=== PATIENT | female | born 1960 | race African-American/Black ===

== ENCOUNTER 2019-06-28 08:32 | Inpatient (IN) | payer OTHER ==
[2019-06-28 09:46] VITALS: BMI 18.8
--- NOTE | 2019-06-28 10:14 | HP ---
COWS - Scale Resting Pulse: 0= [place] 80 or Below Sweatin= Chills/Flushing Restless Observation: 1= Difficult to Sit Still Pupil Size: 1= Pupils >than Normal Bone or Joint Aches: 2= Severe Diffuse Aches Runny Nose/ Eye Tearin= Runny Nose/Eyes GI Upset > 30mins: 2= Nausea/Diarrhea Tremor Observation: 2= Slight Tremor Visible Yawning Observation: 1= 1-2x During Session Anxiety or Irritability: 2=Irritable/Anxious Goose Flesh Skin: 0=Smooth Skin COWS Score: 14 CIWA Score Nausea/Vomitin Muscle Tremors: 2 Anxiety: 3 Agitation: 3 Paroxysmal Sweats: 1-Minimal Palms Moist Orientation: 0-Oriented Tacttile Disturbances: 1-Very Mild Itch/Numbness Auditory Disturbances: 0-None Visual Disturbances: 0-None Headache: 2-Mild CIWA-Ar Total Score: 14 - Admission Criteria OASAS Guidelines: Admission for Medically Managed Detox: Requires at least one of the followin. CIWA greater than 12 2. Seizures within the past 24 hours 3. Delirium tremens within the past 24 hours 4. Hallucinations within the past 24 hours 5. Acute intervention needed for co occurring medical disorder 6. Acute intervention needed for co occurring psychiatric disorder 7. Severe withdrawal that cannot be handled at a lower level of care (continued vomiting, continued diarrhea, abnormal vital signs) requiring intravenous medication and/or fluids 8. Admission ROS [facility] - [facility] Chief Complaint: i need help to stop using heroin,alcohol,and cocaine Allergies/Adverse Reactions: Allergies Allergy/AdvReac Type Severity Reaction Status Date / Time No Known Allergies Allergy Verified 06/28/19 09:32 History of Present Illness: this 59 years old female with heroin,alcohol,crack dependence,seeking detox, withdrawalsymptom, multiple admissions in detox,last [facility] in 2017 hypertension,hepatitis c treated weight loss hiv since in 1971 no medication for 3 months depression no med did not want to see psychiatrist longest period of sobriety 5 years plan go methadone maintenance after detox nicotine dependence 10 cigarette would like nicotine gum Exam Limitations: No Limitations - Ebola screening Have you traveled outside of the country in the last 21 days: No Have you had contact with anyone from an Ebola affected area: No - Review of Systems Constitutional: Chills, Loss of Appetite, Malaise, Night Sweats, Changes in sleep, Unintentional Wgt. Loss EENT: reports: Tearing, Nose Congestion Respiratory: reports: No Symptoms reported Cardiac: reports: No Symptoms Reported GI: reports: Diarrhea, Nausea, Poor Appetite : reports: No Symptoms Reported Musculoskeletal: reports: Back Pain, Joint Pain, Muscle Pain, Joint Stiffness Integumentary: reports: Dryness Neuro: reports: Headache, Tremors Endocrine: reports: No Symptoms Reported Hematology: reports: Anemia Psychiatric: reports: No Sypmtoms Reported, Judgement Intact, Mood/Affect Appropiate, Orientated x3 Other Systems: Reviewed and Negative Patient History - Patient Medical History Hx Anemia: Yes (no med) Hx Asthma: No Hx Chronic Obstructive Pulmonary Disease (COPD): No Hx Cancer: No Hx Cardiac Disorders: No Hx Congestive Heart Failure: No Hx Hypertension: Yes (no medication) Hx Hypercholesterolemia: No Hx Pacemaker: No HX Cerebrovascular Accident: No Hx Seizures: No Hx Dementia: No Hx Diabetes: No Hx Gastrointestinal Disorders: No Hx Liver Disease: Yes (hepatitis c treated) Hx Genitourinary Disorders: No Hx Sexually Transmitted Disorders: No Hx Renal Disease (ESRD): No Hx Thyroid Disease: No Hx Human Immunodeficiency Virus (HIV): Yes (since 1971,no med for 3 months) Hx Hepatitis C: Yes (treated in 1995) Hx Depression: No Hx Suicide Attempt: No Hx Bipolar Disorder: No Hx Schizophrenia: No Other Medical History: no suicidal,no homicidal - Patient Surgical History Past Surgical History: No - PPD History Previous Implant?: Yes Documented Results: Positive w/o proof Implanted On Prior R Admission?: No PPD to be Administered?: No - Reproductive History Patient is a Female of Child Bearing Age (11 -55 yrs old): No Patient : No - Smoking Cessation Smoking history: Current every day smoker Have you smoked in the past 12 months: Yes Aproximately how many cigarettes per day: 10 Cigars Per Day: 0 Hx Chewing Tobacco Use: No Initiated information on smoking cessation: Yes 'Breaking Loose' booklet given: 06/28/19 - Substance & Tx. History Hx Alcohol Use: Yes Hx Substance Use: Yes Substance Use Type: Alcohol, Cocaine, Heroin Hx Substance Use Treatment: Yes ([facility] in 2018) - Substances abused Heroin Substance route: Inhalation Frequency: Daily Amount used: 4-5 bags Age of first use: 24 Date of last use: 06/27/19 Crack Substance route: Inhalation Frequency: Daily Amount used: 4-5 bags Age of first use: 24 Date of last use: 06/27/19 Alcohol Substance route: Oral Amount used: 16 oz 3-4 beers Age of first use: 24 Date of last use: 06/28/19 Family Disease History - Family Disease History Family History: Denies Admission Physical Exam [facility] - Vital Signs Vital Signs: Vital Signs - 24 hr 06/28/19 09:32 Temperature 98.0 F Pulse Rate 67 Respiratory 16 Rate Blood Pressure 151/95 - Physical General Appearance: Yes: Moderate Distress, Tremorous, Irritable, Sweating, Anxious HEENTM: Yes: Normal ENT Inspection, SILVIO, Pharynx Normal Respiratory: Yes: Lungs Clear, Normal Breath Sounds, No Respiratory Distress Neck: Yes: Within Normal Limits, Supple, Trachea in good position Breast: Yes: Breast Exam Deferred Cardiology: Yes: Within Normal Limits, Regular Rhythm, Regular Rate, S1, S2 Abdominal: Yes: Within Normal Limits, Normal Bowel Sounds, Non Tender, Flat Genitourinary: Yes: Within Normal Limits Back: Yes: Muscle Spasm Musculoskeletal: Yes: Back pain, Joint Stiffness, Muscle Pain Extremities: Yes: Within Normal Limits, Normal Range of Motion, Tremors Neurological: Yes: density control puncher II-XII NML intact, Fully Oriented, Alert, Motor Strength 5/5 Integumentary: Yes: Dry Lymphatic: Yes: Within Normal Limits - Diagnostic (1) Opioid dependence with withdrawal Current Visit: Yes Status: Acute (2) Alcohol dependence with uncomplicated withdrawal Current Visit: Yes Status: Acute (3) Cocaine dependence Current Visit: Yes Status: Acute (4) Weight loss Current Visit: Yes Status: Acute (5) HIV (human immunodeficiency virus infection) Current Visit: Yes Status: Acute (6) Nicotine dependence Current Visit: Yes Status: Acute (7) Hepatitis C Current Visit: Yes Status: Acute Cleared for Admission [facility] - Detox or Rehab [facility] Level of Care: Medically Managed Detox Regimen/Protocol: Methadone (and ativan ) Inpatient Rehab Admission - Rehab Decision to Admit Inpatient rehab admission?: No
[2019-06-28] MEDS ORDERED: hydrOXYzine HCL 25 MG TABLET (FP) PO PRN (10:28)
[2019-06-28] MEDS ORDERED: IBUPROFEN 400 MG TABLET (FP) PO PRN (10:28)
[2019-06-28] MEDS ORDERED: METHOCARBAMOL 500 MG TABLET PO PRN (10:28)
[2019-06-28] MEDS ORDERED: ACETAMINOPHEN 325 MG TABLET (FP) PO PRN ×2 (10:28)
[2019-06-28] MEDS ORDERED: MAGNESIUM HYDROX 2400MG/30ML ORAL SUSPENSION 30 ML CUP PO PRN (10:28)
[2019-06-28] MEDS ORDERED: MENTHOL/PHENOL 1 EACH UD MM PRN (10:28)
[2019-06-28] MEDS ORDERED: MAG HYDROX/AL HYDROX/SIMETH 30 ML UNIT-DOSE CUP PO PRN (10:28)
[2019-06-28] MEDS ORDERED: NICOTINE POLACRILEX 2 MG GUM BUC PRN (10:28)
[2019-06-28] MEDS ORDERED: MAGNESIUM CITRATE 300 ML BOTTLE PO PRN (10:28)
[2019-06-28] MEDS ORDERED: BISMUTH SUBSALICYLATE 262 MG/15 ML BTL PO PRN (10:28)
[2019-06-28] MEDS ORDERED: MELATONIN 5 MG TABLETS PO PRN (10:28)
[2019-06-28] MEDS ORDERED: cloNIDine HCL 0.1 MG TABLET PO PRN (10:28)
[2019-06-28] MEDS ORDERED: LORazepam 1 MG TABLET PO PRN (10:31)
[2019-06-28] MEDS ORDERED: METHADONE HCL 10 MG TABLET (FOR DETOX USE ONLY) PO ONE (10:45)
--- NOTE | 2019-06-28 13:56 | EKG ---
Test Reason : Blood Pressure : / mmHG Vent. Rate : 060 BPM Atrial Rate : 060 BPM P-R Int : 186 ms QRS Dur : 092 ms QT Int : 420 ms P-R-T Axes : 073 072 069 degrees QTc Int : 420 ms SINUS RHYTHM WITH FUSION COMPLEXES POSSIBLE LEFT ATRIAL ENLARGEMENT LEFT VENTRICULAR HYPERTROPHY T WAVE ABNORMALITY, CONSIDER ANTERIOR ISCHEMIA ABNORMAL ECG NO PREVIOUS ECGS AVAILABLE Confirmed by LUIS MIGUEL JOHNSON MD ([id number]) on 06/28/2019 1:56:15 PM Referred By: Confirmed By:LUIS MIGUEL JOHNSON MD
[2019-06-28 14:34] LABS: HEMATOCRIT 28.9 % (32.4-45.2); HEMOGLOBIN 9.8 GM/dL (10.7-15.3); MCH 31.5 pg (25.7-33.7); MCHC 33.8 g/dl (32.0-36.0); MEAN CELL VOLUME 93.4 fl (80-96); MEAN PLT VOLUME 8.4 fl (7.5-11.1); PLATELET COUNT 201 K/MM3 (134-434); RDW 14.7 % (11.6-15.6); WHITE BLOOD COUNT 3.3 K/mm3 (4.0-10.0)
[2019-06-28 14:54] LABS: ALBUMIN 3.2 g/dl (3.4-5.0); BILIRUBIN,TOTAL 0.2 mg/dL (0.2-1); BLOOD UREA NITROGEN 15.7 mg/dL (7-18); CALCIUM 8.2 mg/dL (8.5-10.1); CREATININE 1.1 mg/dL (0.55-1.3); POTASSIUM 4.4 mmol/L (3.5-5.1); TOT PROT 9.6 g/dl (6.4-8.2)
[2019-06-28] MEDS: LORazepam 2 MG TABLET PO SCH ×2 (17:34→21:59)
[2019-06-28] MEDS ORDERED: THIAMINE HCL 100 MG TABLET (FP) PO SCH (22:00)
[2019-06-29] MEDS: LORazepam 2 MG TABLET PO SCH (05:42)
[2019-06-29 09:58] VITALS: BP 171/99; PULSE 73; TEMP 98.4
[2019-06-29] MEDS ORDERED: METHADONE HCL 5 MG TABLET (FOR DETOX USE ONLY) PO ONE (10:00)
[2019-06-29] MEDS ORDERED: PRENATAL VITAMINS W/ FOLIC ACID TABLET (FP) PO SCH (10:00)
--- NOTE | 2019-06-29 15:31 | PN ---
S CIWA - CIWA Score Nausea/Vomitin-No Nausea/No Vomiting Muscle Tremors: 2 Anxiety: 4-Mod. Anxious/Guarded Agitation: 3 Paroxysmal Sweats: 2 Orientation: 2-Disoriented Date<2 days Tacttile Disturbances: 0-None Auditory Disturbances: 0-None Visual Disturbances: 2-Mild Sensitivity Headache: 0-None Present CIWA-Ar Total Score: 15 BHS COWS - Scale Resting Pulse: 0= [place] 80 or Below Sweatin= Chills/Flushing Restless Observation: 1= Difficult to Sit Still Pupil Size: 0= Normal to Room Light Bone or Joint Aches: 2= Severe Diffuse Aches Runny Nose/ Eye Tearin= None GI Upset > 30mins: 0= None Tremor Observation of Outstretched Hands: 2= Slight Tremor Visible Yawning Observation: 1= 1-2x During Session Anxiety or Irritability: 2=Irritable/Anxious Goose Flesh Skin: 0=Smooth Skin COWS Score: 9 BHS Progress Note (SOAP) Subjective: Anxious, Tremors, Body Aches, Sweating. Objective: PATIENT A & O X 2 (UNCERTAIN ABOUT CURRENT DAY / DATE). PATIENT OBSERVED AMBULATING ON UNIT UNASSISTED. IN NO ACUTE DISTRESS. 06/29/19 15:30 Vital Signs Temperature 98.4 F 06/29/19 09:56 Pulse Rate 73 06/29/19 09:56 Respiratory Rate 18 06/29/19 09:56 Blood Pressure 171/99 H 06/29/19 09:56 O2 Sat by Pulse Oximetry (%) Laboratory Tests 06/28/19 06/28/19 06/28/19 10:35 10:35 10:35 WBC 3.3 L RBC 3.10 L Hgb 9.8 L Hct 28.9 L MCV 93.4 MCH 31.5 MCHC 33.8 RDW 14.7 Plt Count 201 MPV 8.4 Sodium 134 L Potassium 4.4 Chloride 100 Carbon Dioxide 28 Anion Gap 6 L BUN 15.7 Creatinine 1.1 Est GFR (CKD-EPI)AfAm 63.20 Est GFR (CKD-EPI)NonAf 54.53 Random Glucose 83 Calcium 8.2 L Total Bilirubin 0.2 AST 14 L ALT 13 Alkaline Phosphatase 122 H Total Protein 9.6 H Albumin 3.2 L RPR Titer Nonreactive LABS NOTED. Assessment: 06/29/19 15:31 WITHDRAWAL SYMPTOMS. HYPERTENSION. ANEMIA. LEUKOPENIA. 06/29/19 15:31 Plan: CONTINUE DETOX. PATIENT REPORTS HISTORY OF ANEMIA IN PAST.
--- NOTE | 2019-06-29 15:39 | DS ---
[facility] Detox Discharge Summary Admission Date: 06/28/19 Discharge Date: 06/29/19 - History Present History: Alcohol Dependence, Cocaine Dependence, Opioid Dependence Additional Comments: DESPITE EFFORTS BY BIRD KEEPER AND BY NURSING STAFF TO ADDRESS PATIENT'S MEDICAL NEEDS / CONCERNS, PATIENT DOES NOT WISH TO REMAIN TO COMPLETE DETOX REGIMEN. RISKS OF LEAVING DETOX UNIT AGAINST MEDICAL ADVICE AND PRIOR TO COMPLETION OF DETOX REGIMEN EXPLAINED TO PATIENT. PATIENT ADVISED TO GO IMMEDIATELY TO NEAREST ER SHOULD ANY INTOLERABLE WITHDRAWAL / DETOX SYMPTOMS DEVELOP AT ANY TIME. PATIENT ALSO ADVISED TO FOLLOW-UP WITH RAIL DOWELING MACHINE OPERATOR SOON POSSIBLE FOR ANEMIA AND FOR LOW WBC COUNT NOTED ON DETOX ADMISSION LABORATORY ASSESSMENT. PATIENT VERBALIZED UNDERSTANDING OF ALL RECOMMENDATIONS PRESENTED TO HER PRIOR TO LEAVING DETOX UNIT. COPIES OF RESULTS OF ALL LABS DRAWN WHILE ADMITTED FOR DETOX GIVEN TO PATIENT AT TIME OF DISCHARGE FROM DETOX UNIT. PATIENT LEFT DETOX UNIT IN STABLE MEDICAL CONDITION. Pertinent Past History: Weight Loss, H.I.V., Nicotine Dependence, Hep C (Treated), HTN, Depression, History Of Anemia. - Physical Exam Results Vital Signs: Vital Signs Temperature 98.4 F 06/29/19 09:56 Pulse Rate 73 06/29/19 09:56 Respiratory Rate 18 06/29/19 09:56 Blood Pressure 171/99 H 06/29/19 09:56 O2 Sat by Pulse Oximetry (%) Pertinent Admission Physical Exam Findings: WITHDRAWAL SYMPTOMS. Laboratory Tests 06/28/19 06/28/19 06/28/19 10:35 10:35 10:35 WBC 3.3 L RBC 3.10 L Hgb 9.8 L Hct 28.9 L MCV 93.4 MCH 31.5 MCHC 33.8 RDW 14.7 Plt Count 201 MPV 8.4 Sodium 134 L Potassium 4.4 Chloride 100 Carbon Dioxide 28 Anion Gap 6 L BUN 15.7 Creatinine 1.1 Est GFR (CKD-EPI)AfAm 63.20 Est GFR (CKD-EPI)NonAf 54.53 Random Glucose 83 Calcium 8.2 L Total Bilirubin 0.2 AST 14 L ALT 13 Alkaline Phosphatase 122 H Total Protein 9.6 H Albumin 3.2 L RPR Titer Nonreactive LABS NOTED. - Diagnosis (1) Leukopenia Status: Acute Qualifiers: Leukopenia type: unspecified Qualified Code(s): D72.819 - Decreased white blood cell count, unspecified (2) Anemia Status: Acute Qualifiers: Anemia type: unspecified type Qualified Code(s): D64.9 - Anemia, unspecified (3) Hypertension Status: Acute Qualifiers: Hypertension type: unspecified Qualified Code(s): I10 - Essential (primary ) hypertension (4) Opioid dependence with withdrawal Status: Acute (5) Alcohol dependence with uncomplicated withdrawal Status: Acute (6) Cocaine dependence Status: Acute Qualifiers: Substance use status: in withdrawal Qualified Code(s): F14.23 - Cocaine dependence with withdrawal (7) Weight loss Status: Acute (8) HIV (human immunodeficiency virus infection) Status: Acute Qualifiers: HIV symptom status: unspecified Qualified Code(s): B20 - Human immunodeficiency virus [HIV] disease (9) Nicotine dependence Status: Acute Qualifiers: Nicotine product type: cigarettes Substance use status: uncomplicated Qualified Code(s): F17.210 - Nicotine dependence, cigarettes, uncomplicated (10) Hepatitis C Status: Acute Qualifiers: Viral hepatitis chronicity: unspecified Hepatic coma status: without hepatic coma Qualified Code(s): B19.20 - Unspecified viral hepatitis C without hepatic coma - AMA Did Patient Leave Against Medical Advice: Yes (PATIENT DID NOT WISH TO REMAIN TO COMPLETE DETOX REGIMEN.)
[2019-06-30] MEDS ORDERED: LORazepam 1 MG TABLET PO SCH (05:00)
[2019-06-30] MEDS ORDERED: METHADONE HCL 10 MG TABLET (FOR DETOX USE ONLY) PO ONE (10:00)
[2019-07-01] MEDS ORDERED: LORazepam 0.5 MG TABLET PO PRN
[2019-07-01] MEDS ORDERED: LORazepam 0.5 MG TABLET PO SCH (05:00)
[2019-07-01] MEDS ORDERED: METHADONE HCL 5 MG TABLET (FOR DETOX USE ONLY) PO ONE (06:00)
[2019-07-02] MEDS ORDERED: LORazepam 0.5 MG TABLET PO ONE (05:00)
== END 2019-06-29 09:37 | disposition left against medical advice (07) | DRG 770 ==
LOC: YASAS 08:32 → Y3N 10:29
PROVIDERS: ADMIT Surgery; ATTEND Surgery
PROC: HZ2ZZZZ Detoxification Services for Substance Abuse Treatment (ICD-10-PCS; principal; 2019-06-28)
DX: F11.23 Opioid dependence with withdrawal (principal); F10.230 Alcohol dependence with withdrawal, uncomplicated; F14.20 Cocaine dependence, uncomplicated; F17.210 Nicotine dependence, cigarettes, uncomplicated; D72.819 Decreased white blood cell count, unspecified; D64.9 Anemia, unspecified; I10 Essential (primary) hypertension; R63.4 Abnormal weight loss; B19.20 Unspecified viral hepatitis C without hepatic coma; Z21 Asymptomatic human immunodeficiency virus [HIV] infection status
CPT/HCPCS: 36415; 71045-TC-FY; 80053; 81025; 85027; 86593; 93005; 93010

== ENCOUNTER 2019-08-10 08:46 | Inpatient (IN) | payer OTHER | END 2019-08-12 11:24 | disposition left against medical advice (07) | LOC: YASAS 08:46 → Y6N 10:50 ==

== ENCOUNTER 2019-10-12 11:58 | Inpatient (IN) | payer OTHER ==
[2019-10-12 12:40] VITALS: BMI 18.6
--- NOTE | 2019-10-12 13:18 | HP ---
COWS - Scale Resting Pulse: 0= [place] 80 or Below Sweatin=Flushed/Facial Moisture Restless Observation: 1= Difficult to Sit Still Pupil Size: 1= Pupils >than Normal Bone or Joint Aches: 1= Mild Discomfort Runny Nose/ Eye Tearin= Nasal Congestion GI Upset > 30mins: 2= Nausea/Diarrhea Tremor Observation: 2= Slight Tremor Visible Yawning Observation: 1= 1-2x During Session Anxiety or Irritability: 1=Feels Anxious/Irritable Goose Flesh Skin: 3=Piloerection COWS Score: 15 CIWA Score Nausea/Vomitin Muscle Tremors: 2 Anxiety: 2 Agitation: 2 Paroxysmal Sweats: 2 Orientation: 0-Oriented Tacttile Disturbances: 1-Very Mild Itch/Numbness Auditory Disturbances: 1-Very Mild Visual Disturbances: 1-Very Mild Sensitivity Headache: 2-Mild CIWA-Ar Total Score: 15 - Admission Criteria OASAS Guidelines: Admission for Medically Managed Detox: Requires at least one of the followin. CIWA greater than 12 2. Seizures within the past 24 hours 3. Delirium tremens within the past 24 hours 4. Hallucinations within the past 24 hours 5. Acute intervention needed for co occurring medical disorder 6. Acute intervention needed for co occurring psychiatric disorder 7. Severe withdrawal that cannot be handled at a lower level of care (continued vomiting, continued diarrhea, abnormal vital signs) requiring intravenous medication and/or fluids 8. Patient presents the following: CIWA greater than 12 Admission Criteria Met: Admission criteria met Admitting History and Physical - Smoking History Smoking history: Current every day smoker Have you smoked in the past 12 months: Yes Aproximately how many cigarettes per day: 10 - Alcohol/Substance Use Hx Alcohol Use: Yes Admission ROS [facility] Chief Complaint: I am here to get detox Allergies/Adverse Reactions: Allergies Allergy/AdvReac Type Severity Reaction Status Date / Time No Known Allergies Allergy Verified 08/10/19 09:05 History of Present Illness: 59 year old woman with alcohol and opiate use presents for detox, her last treatment was 08/10/19. She denies blackouts or seizures related to drug/alcohol use. Patient was on oxycodone but at this visit, she reports not using as much as before. Exam Limitations: No Limitations - Ebola screening Have you traveled outside of the country in the last 21 days: No (N) Have you had contact with anyone from an Ebola affected area: No Have you been sick,other than usual withdrawal symptoms: No Do you have a fever: No - Review of Systems Constitutional: Chills, Loss of Appetite, Changes in sleep EENT: reports: Nose Congestion Respiratory: reports: Cough Cardiac: reports: No Symptoms Reported GI: reports: Nausea, Poor Appetite, Poor Fluid Intake, Abdominal cramping : reports: No Symptoms Reported Musculoskeletal: reports: Back Pain, Muscle Pain, Muscle Weakness Integumentary: reports: Dryness Neuro: reports: Headache, Numbness Endocrine: reports: No Symptoms Reported Hematology: reports: Anemia Psychiatric: reports: Anxious, Depressed Other Systems: Reviewed and Negative Patient History - Patient Medical History Hx Anemia: Yes (no med) Hx Asthma: No Hx Chronic Obstructive Pulmonary Disease (COPD): No Hx Cancer: No Hx Cardiac Disorders: No Hx Congestive Heart Failure: No Hx Hypertension: Yes (no medication) Hx Hypercholesterolemia: No Hx Pacemaker: No HX Cerebrovascular Accident: No Hx Seizures: No Hx Dementia: No Hx Diabetes: No Hx Gastrointestinal Disorders: No Hx Liver Disease: Yes (hepatitis c treated) Hx Genitourinary Disorders: No Hx Sexually Transmitted Disorders: No Hx Renal Disease (ESRD): No Hx Thyroid Disease: No Hx Human Immunodeficiency Virus (HIV): Yes (since 1971,no med for 3 months) Hx Hepatitis C: Yes (treated in 1995) Hx Depression: Yes (with anxiety - no meds now) Hx Suicide Attempt: No Hx Bipolar Disorder: No Hx Schizophrenia: No - Patient Surgical History Past Surgical History: Yes Hx Neurologic Surgery: No Hx Cataract Extraction: No Hx Cardiac Surgery: No Hx Lung Surgery: No Hx Breast Surgery: No Hx Breast Biopsy: No Hx Abdominal Surgery: No Hx Appendectomy: No Hx Cholecystectomy: No Hx Genitourinary Surgery: Yes (ectopic years ago) Hx Section: No Hx Orthopedic Surgery: No Anesthesia Reaction: No - PPD History Previous Implant?: No Documented Results: Positive w/o proof Date: 06/28/19 PPD to be Administered?: No - Smoking Cessation Smoking history: Current every day smoker Have you smoked in the past 12 months: Yes Aproximately how many cigarettes per day: 10 Cigars Per Day: 0 Hx Chewing Tobacco Use: No Initiated information on smoking cessation: Yes 'Breaking Loose' booklet given: 10/12/19 - Substances abused Heroin Substance route: Inhalation Frequency: Daily Amount used: 7 bags Age of first use: 24 Date of last use: 10/12/19 Crack Substance route: Smoking Frequency: Daily Amount used: 6 bags Age of first use: 24 Date of last use: 10/12/19 Alcohol Substance route: Oral Amount used: 16 oz 6 beers Age of first use: 24 Date of last use: 10/12/19 Oxycontin Other (specify): oxycodone Substance route: Oral Frequency: Daily Amount used: 30mg Marijuana/Hashish Substance route: Smoking Frequency: 1-3 times last 30 days Amount used: 1 joint Age of first use: 8 Date of last use: 08/07/19 Admission Physical Exam [facility] - Vital Signs Vital Signs: Vital Signs - 24 hr 10/12/19 12:31 Temperature 97.1 F L Pulse Rate 73 Respiratory 18 Rate Blood Pressure 157/94 - Physical General Appearance: Yes: No Apparent Distress HEENTM: Yes: EOMI, Hearing grossly Normal, Normocephalic, Normal Voice, SILVIO Respiratory: Yes: Chest Non-Tender, Lungs Clear, No Respiratory Distress, No Accessory Muscle Use Neck: Yes: No masses,lesions,Nodules, Supple Breast: Yes: Breast Exam Deferred Cardiology: Yes: Regular Rhythm, Regular Rate, S1, S2 Abdominal: Yes: Normal Bowel Sounds, Soft Genitourinary: Yes: Within Normal Limits Back: Yes: Normal Inspection Musculoskeletal: Yes: full range of Motion, Gait Steady, Pelvis Stable Extremities: Yes: Tremors Neurological: Yes: sheet metal foreman II-XII NML intact, Fully Oriented, Alert, Normal Mood/ Affect, Normal Response Integumentary: Yes: Dry Lymphatic: Yes: Within Normal Limits - Diagnostic (1) Alcohol dependence with uncomplicated withdrawal Current Visit: Yes Status: Acute (2) Cocaine dependence Current Visit: Yes Status: Acute Qualifiers: Substance use status: uncomplicated Qualified Code(s): F14.20 - Cocaine dependence, uncomplicated (3) HIV (human immunodeficiency virus infection) Current Visit: Yes Status: Chronic Qualifiers: HIV symptom status: unspecified Qualified Code(s): B20 - Human immunodeficiency virus [HIV] disease (4) Hepatitis C virus infection cured after antiviral drug therapy Current Visit: Yes Status: Chronic (5) Hypertension Current Visit: Yes Status: Chronic Qualifiers: Hypertension type: essential hypertension Qualified Code(s): I10 - Essential (primary) hypertension (6) Nicotine dependence Current Visit: Yes Status: Acute Qualifiers: Nicotine product type: cigarettes Substance use status: uncomplicated Qualified Code(s): F17.210 - Nicotine dependence, cigarettes, uncomplicated (7) Opioid dependence with withdrawal Current Visit: Yes Status: Acute Cleared for Admission S - Detox or Rehab [facility] Level of Care: Medically Managed Detox Regimen/Protocol: Methadone/Librium Claeared for Rehab Admission: No Breathalyzer - Breathalyzer Breathalyzer: 0.008 Urine Drug Screen - Test Device Lot number: [id number] Expiration date: 06/26/21 - Control Is test valid?: Yes - Results Drug screen NEGATIVE: No Urine drug screen results: DUANE-Cocaine, MOP-Opiates Inpatient Rehab Admission - Rehab Decision to Admit Inpatient rehab admission?: No
[2019-10-12] MEDS ORDERED: chlordiazePOXIDE HCL 10 MG CAPSULE PO PRN (13:49)
[2019-10-12] MEDS ORDERED: cloNIDine HCL 0.1 MG TABLET PO PRN (13:49)
[2019-10-12] MEDS ORDERED: ACETAMINOPHEN 325 MG TABLET (FP) PO PRN ×2 (13:49)
[2019-10-12] MEDS ORDERED: NALOXONE HCL 0.4 MG/ML VIAL IM PRN (13:49)
[2019-10-12] MEDS ORDERED: MAGNESIUM CITRATE 300 ML BOTTLE PO PRN (13:49)
[2019-10-12] MEDS ORDERED: NICOTINE POLACRILEX 2 MG GUM BUC PRN (13:49)
[2019-10-12] MEDS ORDERED: MELATONIN 5 MG TABLETS PO PRN (13:49)
[2019-10-12] MEDS ORDERED: chlordiazePOXIDE HCL 25 MG CAPSULE PO ONE (13:49)
[2019-10-12] MEDS ORDERED: BISMUTH SUBSALICYLATE 524 MG/30 ML UD PO PRN (13:49)
[2019-10-12] MEDS ORDERED: METHOCARBAMOL 500 MG TABLET PO PRN (13:49)
[2019-10-12] MEDS ORDERED: IBUPROFEN 400 MG TABLET (FP) PO PRN (13:49)
[2019-10-12] MEDS ORDERED: MENTHOL/PHENOL 1 EACH UD MM PRN (13:49)
[2019-10-12] MEDS ORDERED: MAG HYDROX/AL HYDROX/SIMETH 30 ML UNIT-DOSE CUP PO PRN (13:49)
[2019-10-12] MEDS ORDERED: METHADONE HCL 10 MG TABLET (FOR DETOX USE ONLY) PO ONE (13:49)
[2019-10-12] MEDS ORDERED: MAGNESIUM HYDROX 2400MG/30ML ORAL SUSPENSION 30 ML CUP PO PRN (13:49)
[2019-10-12] MEDS ORDERED: THIAMINE HCL 100 MG TABLET (FP) PO SCH (22:00)
[2019-10-12] MEDS: chlordiazePOXIDE HCL 25 MG CAPSULE PO SCH (22:37)
[2019-10-13] MEDS: chlordiazePOXIDE HCL 25 MG CAPSULE PO SCH ×2 (05:31→12:45)
[2019-10-13 06:54] VITALS: BP 150/86
--- NOTE | 2019-10-13 09:20 | PN ---
[facility] CIWA - CIWA Score Nausea/Vomitin-Mild Nausea/No Vomiting Muscle Tremors: 3 Anxiety: 3 Agitation: 1-Slight > Activity Paroxysmal Sweats: 2 Orientation: 1-Uncertain about Date (date of week) Tacttile Disturbances: 1-Very Mild Itch/Numbness Auditory Disturbances: 0-None Visual Disturbances: 0-None Headache: 2-Mild CIWA-Ar Total Score: 14 BHS COWS - Scale Resting Pulse: 0= [place] 80 or Below Sweatin= Chills/Flushing Restless Observation: 0= Sits Still Pupil Size: 1= Pupils >than Normal Bone or Joint Aches: 2= Severe Diffuse Aches Runny Nose/ Eye Tearin= None GI Upset > 30mins: 2= Nausea/Diarrhea (no diarrhea) Tremor Observation of Outstretched Hands: 2= Slight Tremor Visible Yawning Observation: 1= 1-2x During Session Anxiety or Irritability: 2=Irritable/Anxious Goose Flesh Skin: 3=Piloerection COWS Score: 14 S Progress Note (SOAP) Subjective: 59 years old female admitted on 10/12/19 for alcohol and opiate withdrawal sx management treated with librium and methadone detox regimen patient tolerated well ate breakfast resting on bed headaches body aches prefers to stay in bed today Objective: 10/13/19 09:21 Vital Signs Temperature 99.1 F 10/13/19 06:53 Pulse Rate 60 10/13/19 06:53 Respiratory Rate 16 10/13/19 06:53 Blood Pressure 150/86 10/13/19 06:53 O2 Sat by Pulse Oximetry (%) 10/13/19 09:23 lab pending 10/13/19 09:24 bp elevation Assessment: 10/13/19 09:23 alcohol and opiate withdrawal sx 10/13/19 09:23 hypertension Plan: continue librium and methadone detox regimen begin amlodipine 5 mg po daily
[2019-10-13 09:40] VITALS: PULSE 74; TEMP 98.8
[2019-10-13] MEDS ORDERED: METHADONE HCL 5 MG TABLET (FOR DETOX USE ONLY) PO ONE (10:00)
[2019-10-13] MEDS ORDERED: amLODIPine BESYLATE 5 MG TABLET (FP) PO SCH (10:00)
[2019-10-13] MEDS ORDERED: PRENATAL VITAMINS W/ FOLIC ACID TABLET (FP) PO SCH (10:00)
[2019-10-13 11:06] LABS: HEMOGLOBIN 10.5 GM/dL (10.7-15.3); MCH 30.9 pg (25.7-33.7); MCHC 33.8 g/dl (32.0-36.0); MEAN CELL VOLUME 91.3 fl (80-96); MEAN PLT VOLUME 8.5 fl (7.5-11.1); PLATELET COUNT 180 K/MM3 (134-434); RBC 3.39 M/mm3 (3.60-5.2); RDW 13.6 % (11.6-15.6)
[2019-10-13 11:12] LABS: ALBUMIN 2.7 g/dl (3.4-5.0); BILIRUBIN,TOTAL 0.2 mg/dL (0.2-1); BLOOD UREA NITROGEN 18.2 mg/dL (7-18); CALCIUM 8.2 mg/dL (8.5-10.1); POTASSIUM 3.8 mmol/L (3.5-5.1); TOT PROT 8.8 g/dl (6.4-8.2)
--- NOTE | 2019-10-13 14:02 | DS ---
[facility] Detox Discharge Summary Admission Date: 10/12/19 Discharge Date: 10/13/19 - History Present History: Alcohol Dependence, Opioid Dependence Additional Comments: 59 years old female insists to leave the detox unit without apparent reason refuses ciwa refuse cows refuses discharge exist physical examination patient is alert oriented x 3 speech clearly coherently denies suicidal ideation steady gait Pertinent Past History: case discussed with the nurse and counselor that against medical advice is suitable for current discharge circumstances - Physical Exam Results Vital Signs: Vital Signs Temperature 98.8 F 10/13/19 09:38 Pulse Rate 74 10/13/19 09:38 Respiratory Rate 18 10/13/19 09:38 Blood Pressure 150/86 10/13/19 06:53 O2 Sat by Pulse Oximetry (%) Pertinent Admission Physical Exam Findings: alcohol and opiate withdrawal sx Laboratory Last Values WBC 3.0 K/mm3 (4.0-10.0) L 10/13/19 07:40 RBC 3.39 M/mm3 (3.60-5.2) L 10/13/19 07:40 Hgb 10.5 GM/dL (10.7-15.3) L 10/13/19 07:40 Hct 31.0 % (32.4-45.2) L 10/13/19 07:40 MCV 91.3 fl (80-96) 10/13/19 07:40 MCH 30.9 pg (25.7-33.7) 10/13/19 07:40 MCHC 33.8 g/dl (32.0-36.0) 10/13/19 07:40 RDW 13.6 % (11.6-15.6) 10/13/19 07:40 Plt Count 180 K/MM3 (134-434) 10/13/19 07:40 MPV 8.5 fl (7.5-11.1) 10/13/19 07:40 Sodium 138 mmol/L (136-145) 10/13/19 07:40 Potassium 3.8 mmol/L (3.5-5.1) 10/13/19 07:40 Chloride 104 mmol/L (98-107) 10/13/19 07:40 Carbon Dioxide 31 mmol/L (21-32) 10/13/19 07:40 Anion Gap 3 MMOL/L (8-16) L 10/13/19 07:40 BUN 18.2 mg/dL (7-18) H 10/13/19 07:40 Creatinine 1.0 mg/dL (0.55-1.3) 10/13/19 07:40 Est GFR (CKD-EPI)AfAm 70.91 10/13/19 07:40 Est GFR (CKD-EPI)NonAf 61.19 10/13/19 07:40 Random Glucose 87 mg/dL (74-106) 10/13/19 07:40 Calcium 8.2 mg/dL (8.5-10.1) L 10/13/19 07:40 Total Bilirubin 0.2 mg/dL (0.2-1) 10/13/19 07:40 AST 17 U/L (15-37) 10/13/19 07:40 ALT 14 U/L (13-61) 10/13/19 07:40 Alkaline Phosphatase 100 U/L (45-117) 10/13/19 07:40 Total Protein 8.8 g/dl (6.4-8.2) H 10/13/19 07:40 Albumin 2.7 g/dl (3.4-5.0) L 10/13/19 07:40 RPR Titer Nonreactive (NONREACTIVE) 10/13/19 07:40 lab noted - Treatment Hospital Course: Detox Protocol Followed, Responded well Patient has Accepted a Rehab Referral to: [facility] - Medication Discharge Medications: Ambulatory Orders Naloxone HCl [Narcan] 4 mg NS ASDIR PRN #1 spray 10/13/19 - Diagnosis (1) Alcohol dependence with uncomplicated withdrawal Status: Acute (2) COPD (chronic obstructive pulmonary disease) Status: Chronic Qualifiers: COPD type: emphysema Emphysema type: unspecified Qualified Code(s): J43.9 - Emphysema, unspecified (3) Nicotine dependence Status: Acute Qualifiers: Nicotine product type: cigarettes Substance use status: in withdrawal Qualified Code(s): F17.213 - Nicotine dependence, cigarettes, with withdrawal (4) PPD positive, treated Status: Resolved (5) Substance induced mood disorder Status: Suspected (6) HIV (human immunodeficiency virus infection) Status: Chronic Qualifiers: HIV symptom status: unspecified Qualified Code(s): B20 - Human immunodeficiency virus [HIV] disease (7) Hypertension Status: Chronic Qualifiers: Hypertension type: essential hypertension Qualified Code(s): I10 - Essential (primary) hypertension (8) Weight loss Status: Acute - AMA Did Patient Leave Against Medical Advice: Yes
--- NOTE | 2019-10-13 16:48 | EKG ---
Test Reason : Blood Pressure : / mmHG Vent. Rate : 066 BPM Atrial Rate : 066 BPM P-R Int : 192 ms QRS Dur : 094 ms QT Int : 414 ms P-R-T Axes : 082 068 064 degrees QTc Int : 434 ms NORMAL SINUS RHYTHM POSSIBLE LEFT ATRIAL ENLARGEMENT LEFT VENTRICULAR HYPERTROPHY ABNORMAL ECG WHEN COMPARED WITH ECG OF 28-JUN-2019 10:39, FUSION COMPLEXES ARE NO LONGER PRESENT Confirmed by ALEX REGALADO, LUIS MIGUEL ([id number]) on 10/13/2019 4:47:39 PM Referred By: Confirmed By:LUIS MIGUEL JOHNSON MD
[2019-10-14] MEDS ORDERED: chlordiazePOXIDE 5 MG CAPSULE PO SCH (05:00)
[2019-10-14] MEDS ORDERED: METHADONE HCL 10 MG TABLET (FOR DETOX USE ONLY) PO ONE (10:00)
[2019-10-15] MEDS ORDERED: chlordiazePOXIDE HCL 10 MG CAPSULE PO PRN
[2019-10-15] MEDS ORDERED: chlordiazePOXIDE HCL 10 MG CAPSULE PO SCH (05:00)
[2019-10-15] MEDS ORDERED: METHADONE HCL 5 MG TABLET (FOR DETOX USE ONLY) PO ONE (06:00)
[2019-10-16] MEDS ORDERED: chlordiazePOXIDE HCL 10 MG CAPSULE PO ONE (05:00)
== END 2019-10-13 13:50 | disposition left against medical advice (07) | DRG 770 ==
LOC: YASAS 11:58 → Y3N 14:07
PROVIDERS: ADMIT Allergy & Immunology; ATTEND Allergy & Immunology
PROC: HZ2ZZZZ Detoxification Services for Substance Abuse Treatment (ICD-10-PCS; principal; 2019-10-12)
DX: F11.23 Opioid dependence with withdrawal (principal); F10.230 Alcohol dependence with withdrawal, uncomplicated; F14.20 Cocaine dependence, uncomplicated; F17.213 Nicotine dependence, cigarettes, with withdrawal; I10 Essential (primary) hypertension; Z21 Asymptomatic human immunodeficiency virus [HIV] infection status; J43.9 Emphysema, unspecified; R63.4 Abnormal weight loss; D64.9 Anemia, unspecified
CPT/HCPCS: 36415; 80053; 85027; 86593; 93005; 93010; J0735

== ENCOUNTER 2019-10-26 11:18 | Inpatient (IN) | payer OTHER ==
[2019-10-26 12:10] VITALS: BMI 18.4
--- NOTE | 2019-10-26 13:06 | HP ---
COWS - Scale Resting Pulse: 1= [place] 81-100 Sweatin= Chills/Flushing Restless Observation: 1= Difficult to Sit Still Pupil Size: 1= Pupils >than Normal Bone or Joint Aches: 1= Mild Discomfort Runny Nose/ Eye Tearin= Runny Nose/Eyes GI Upset > 30mins: 2= Nausea/Diarrhea Tremor Observation: 2= Slight Tremor Visible Yawning Observation: 1= 1-2x During Session Anxiety or Irritability: 2=Irritable/Anxious Goose Flesh Skin: 3=Piloerection COWS Score: 17 CIWA Score Nausea/Vomitin Muscle Tremors: 2 Anxiety: 2 Agitation: 2 Paroxysmal Sweats: 2 Orientation: 0-Oriented Tacttile Disturbances: 1-Very Mild Itch/Numbness Auditory Disturbances: 1-Very Mild Visual Disturbances: 1-Very Mild Sensitivity Headache: 2-Mild CIWA-Ar Total Score: 15 - Admission Criteria OASAS Guidelines: Admission for Medically Managed Detox: Requires at least one of the followin. CIWA greater than 12 2. Seizures within the past 24 hours 3. Delirium tremens within the past 24 hours 4. Hallucinations within the past 24 hours 5. Acute intervention needed for co occurring medical disorder 6. Acute intervention needed for co occurring psychiatric disorder 7. Severe withdrawal that cannot be handled at a lower level of care (continued vomiting, continued diarrhea, abnormal vital signs) requiring intravenous medication and/or fluids 8. Patient presents the following: CIWA greater than 12 Admission Criteria Met: Admission criteria met Admitting History and Physical - Smoking History Smoking history: Current every day smoker Have you smoked in the past 12 months: Yes Aproximately how many cigarettes per day: 10 - Alcohol/Substance Use Hx Alcohol Use: Yes Admission ROS S - HPI Chief Complaint: " I'm here to get my life together, I need to go to a 21 day program but I have to do detox first". Allergies/Adverse Reactions: Allergies Allergy/AdvReac Type Severity Reaction Status Date / Time pork derived (porcine) Allergy Mild Hives Verified 10/26/19 12:02 History of Present Illness: 59 year old woman with alcohol and opiate use presents for detox, her last treatment was 08/10/19, she signed out AMA. She denies blackouts or seizures related to drug/alcohol use. Patient was on oxycodone but at this visit, she reports not using as much as before. 10/12-10/13 Exam Limitations: No Limitations - Ebola screening Have you traveled outside of the country in the last 21 days: No Have you had contact with anyone from an Ebola affected area: No Have you been sick,other than usual withdrawal symptoms: No Do you have a fever: No - Review of Systems Constitutional: Chills, Changes in sleep, Unexplained wgt Loss EENT: reports: Nose Congestion Respiratory: reports: Cough Cardiac: reports: Lightheadedness GI: reports: Nausea, Poor Appetite, Poor Fluid Intake : reports: No Symptoms Reported Musculoskeletal: reports: Back Pain, Muscle Pain, Muscle Weakness Integumentary: reports: Sweating Neuro: reports: Headache, Numbness, Tremors Endocrine: reports: No Symptoms Reported Hematology: reports: Anemia Psychiatric: reports: Anxious, Depressed Other Systems: Reviewed and Negative Patient History - Patient Medical History Hx Anemia: Yes (no med) Hx Asthma: No Hx Chronic Obstructive Pulmonary Disease (COPD): No Hx Cancer: No Hx Cardiac Disorders: No Hx Congestive Heart Failure: No Hx Hypertension: No Hx Hypercholesterolemia: No Hx Pacemaker: No HX Cerebrovascular Accident: No Hx Seizures: No Hx Dementia: No Hx Diabetes: No Hx Gastrointestinal Disorders: No Hx Liver Disease: Yes (hepatitis c treated) Hx Genitourinary Disorders: No Hx Sexually Transmitted Disorders: No Hx Renal Disease (ESRD): No Hx Thyroid Disease: No Hx Human Immunodeficiency Virus (HIV): Yes (since 1971,no med for 3 months) Hx Hepatitis C: Yes (treated in 1995) Hx Depression: Yes Hx Suicide Attempt: No Hx Bipolar Disorder: No Hx Schizophrenia: No - Patient Surgical History Past Surgical History: Yes Hx Neurologic Surgery: No Hx Cataract Extraction: No Hx Cardiac Surgery: No Hx Lung Surgery: No Hx Breast Surgery: No Hx Breast Biopsy: No Hx Abdominal Surgery: No Hx Appendectomy: No Hx Cholecystectomy: No Hx Genitourinary Surgery: Yes (ectopic years ago) Hx Section: No Hx Orthopedic Surgery: No Anesthesia Reaction: No - PPD History Previous Implant?: No Documented Results: Positive w/o proof Implanted On Prior [facility] Admission?: No Date: 06/28/19 (CXR on 06/28 with chronic lung changes, CT scan recommended) PPD to be Administered?: No - Smoking Cessation Smoking history: Current every day smoker Have you smoked in the past 12 months: Yes Aproximately how many cigarettes per day: 20 Cigars Per Day: 0 Hx Chewing Tobacco Use: No Initiated information on smoking cessation: Yes 'Breaking Loose' booklet given: 10/26/19 - Substances abused Heroin Substance route: Inhalation Frequency: Daily Amount used: 6 bags Age of first use: 24 Date of last use: 10/26/19 Crack Substance route: Smoking Frequency: Daily Amount used: $70 Age of first use: 24 Date of last use: 10/26/19 Alcohol Substance route: Oral Amount used: 16 oz 6 beers Age of first use: 24 Date of last use: 10/26/19 Oxycontin Other (specify): oxycodone Substance route: Oral Frequency: Daily Amount used: 30mg Marijuana/Hashish Substance route: Smoking Frequency: 1-3 times last 30 days Amount used: 1 joint Age of first use: 8 Date of last use: 09/20/19 Admission Physical Exam S - Vital Signs Vital Signs: Vital Signs - 24 hr 10/26/19 12:05 Temperature 97.0 F L Pulse Rate 95 H Respiratory 16 Rate Blood Pressure 133/86 - Physical General Appearance: Yes: Cachetic HEENTM: Yes: Hearing grossly Normal, Normal ENT Inspection, Normal Voice, Nasal Congestion, Other (full set of upper dentures, missing lower set) Respiratory: Yes: Chest Non-Tender, Decreased Breath Sounds, No Respiratory Distress, No Accessory Muscle Use Breast: Yes: Breast Exam Deferred Cardiology: Yes: Regular Rhythm, Regular Rate, S1, S2 Abdominal: Yes: Normal Bowel Sounds, Non Tender, Flat, Soft Genitourinary: Yes: Within Normal Limits Back: Yes: Normal Inspection Musculoskeletal: Yes: Gait Steady, Back pain, Muscle Pain, Muscle weakness Extremities: Yes: Tremors Neurological: Yes: Fully Oriented, Alert, Normal Mood/Affect, Normal Response Integumentary: Yes: Clammy Lymphatic: Yes: Within Normal Limits - Diagnostic (1) Alcohol dependence with uncomplicated withdrawal Current Visit: Yes Status: Acute (2) Chronic back pain Current Visit: Yes Status: Chronic Qualifiers: Back pain location: low back pain Back pain laterality: bilateral Sciatica presence: without sciatica Qualified Code(s): M54.5 - Low back pain; G89.29 - Other chronic pain Comment: need to contact pain management to coordinate care (3) Cocaine dependence Current Visit: Yes Status: Acute Qualifiers: Substance use status: uncomplicated Qualified Code(s): F14.20 - Cocaine dependence, uncomplicated (4) Nicotine dependence Current Visit: Yes Status: Acute Qualifiers: Nicotine product type: cigarettes Substance use status: uncomplicated Qualified Code(s): F17.210 - Nicotine dependence, cigarettes, uncomplicated (5) Opioid dependence with withdrawal Current Visit: Yes Status: Acute (6) HIV (human immunodeficiency virus infection) Current Visit: No Status: Chronic Qualifiers: HIV symptom status: unspecified Qualified Code(s): B20 - Human immunodeficiency virus [HIV] disease (7) Hepatitis C virus infection cured after antiviral drug therapy Current Visit: No Status: Chronic (8) PPD positive, treated Current Visit: No Status: Chronic Comment: 06/28/19 cxr done Cleared for Admission S - Detox or Rehab [facility] Level of Care: Medically Managed Detox Regimen/Protocol: Methadone/Valium Claeared for Rehab Admission: No Breathalyzer - Breathalyzer Breathalyzer: 0.017 Urine Drug Screen - Test Device Lot number: [id number] Expiration date: 06/26/21 - Control Is test valid?: Yes - Results Drug screen NEGATIVE: No Urine drug screen results: UDANE-Cocaine, FEN-Fentanyl, MOP-Opiates, MTD-Methadone , BZO-Benzodiazepines Inpatient Rehab Admission - Rehab Decision to Admit Inpatient rehab admission?: No
[2019-10-26] MEDS ORDERED: P-EPHED 60MG/TRIPROLIDI 2.5MG TABLET PO PRN (13:13)
[2019-10-26] MEDS ORDERED: NICOTINE POLACRILEX 2 MG GUM BUC PRN (13:13)
[2019-10-26] MEDS ORDERED: BISMUTH SUBSALICYLATE 524 MG/30 ML UD PO PRN (13:13)
[2019-10-26] MEDS ORDERED: cloNIDine HCL 0.1 MG TABLET PO PRN (13:13)
[2019-10-26] MEDS ORDERED: NALOXONE HCL 0.4 MG/ML VIAL IM PRN (13:13)
[2019-10-26] MEDS ORDERED: IBUPROFEN 400 MG TABLET (FP) PO PRN (13:13)
[2019-10-26] MEDS ORDERED: diazePAM 5 MG TABLET PO PRN (13:13)
[2019-10-26] MEDS ORDERED: MAGNESIUM CITRATE 300 ML BOTTLE PO PRN (13:13)
[2019-10-26] MEDS ORDERED: MAGNESIUM HYDROX 2400MG/30ML ORAL SUSPENSION 30 ML CUP PO PRN (13:13)
[2019-10-26] MEDS ORDERED: MAG HYDROX/AL HYDROX/SIMETH 30 ML UNIT-DOSE CUP PO PRN (13:13)
[2019-10-26] MEDS ORDERED: METHADONE HCL 10 MG TABLET (FOR DETOX USE ONLY) PO ONE (13:13)
[2019-10-26] MEDS ORDERED: MENTHOL/PHENOL 1 EACH UD MM PRN (13:13)
[2019-10-26] MEDS ORDERED: METHOCARBAMOL 500 MG TABLET PO PRN (13:13)
[2019-10-26] MEDS ORDERED: ACETAMINOPHEN 325 MG TABLET (FP) PO PRN ×2 (13:13)
[2019-10-26] MEDS ORDERED: MELATONIN 5 MG TABLETS PO PRN (13:13)
[2019-10-26] MEDS: NICOTINE 14 MG/24 HOURS TOPICAL PATCH TD SCH (15:13)
[2019-10-26] MEDS: diazePAM 5 MG TABLET PO SCH ×2 (15:18→22:17)
[2019-10-26] MEDS ORDERED: THIAMINE HCL 100 MG TABLET (FP) PO SCH (22:00)
[2019-10-27] MEDS: diazePAM 5 MG TABLET PO SCH ×2 (05:16→15:03)
[2019-10-27] MEDS ORDERED: PRENATAL VITAMINS W/ FOLIC ACID TABLET (FP) PO SCH (10:00)
[2019-10-27] MEDS ORDERED: METHADONE HCL 5 MG TABLET (FOR DETOX USE ONLY) PO ONE (10:00)
[2019-10-27] MEDS: NICOTINE 14 MG/24 HOURS TOPICAL PATCH TD SCH (10:39)
--- NOTE | 2019-10-27 13:17 | PN ---
[facility] CIWA - CIWA Score Nausea/Vomitin-No Nausea/No Vomiting Muscle Tremors: 3 Anxiety: 2 Agitation: 4-Moderately Restless Paroxysmal Sweats: 2 Orientation: 0-Oriented Tacttile Disturbances: 0-None Auditory Disturbances: 0-None Visual Disturbances: 0-None Headache: 0-None Present CIWA-Ar Total Score: 11 [facility] COWS - Scale Resting Pulse: 1= [place] 81-100 Sweatin= Chills/Flushing Restless Observation: 1= Difficult to Sit Still Pupil Size: 0= Normal to Room Light Bone or Joint Aches: 2= Severe Diffuse Aches Runny Nose/ Eye Tearin= None GI Upset > 30mins: 0= None Tremor Observation of Outstretched Hands: 1= Tremor [place], Not Seen Yawning Observation: 2= >3x During Session Anxiety or Irritability: 2=Irritable/Anxious Goose Flesh Skin: 0=Smooth Skin COWS Score: 10 [facility] Progress Note (SOAP) Subjective: chills sweats body aches interrupted sleep nausea Objective: 10/27/19 13:16 Vital Signs Temperature 98.4 F 10/27/19 06:00 Pulse Rate 60 10/27/19 06:00 Respiratory Rate 16 10/27/19 06:00 Blood Pressure 151/88 10/27/19 06:00 O2 Sat by Pulse Oximetry (%) labs pending [id number] ambulating no acute distress Assessment: 10/27/19 13:17 withdrawals Plan: continue detox increase fluids pending labs
[2019-10-27 14:16] VITALS: BP 120/93; PULSE 81; TEMP 98.2
--- NOTE | 2019-10-27 15:13 | PN ---
[facility] Progress Note Note: pt did not want to stay to complete her detox despite efforts to have her stay and knowing that todays weather is not good she insisted on leaving. Pt was encouraged and reminded on reasons for her detox and may be at risk of relapse, seizures, DT, OD and or loss; pt chose to sign out AMA.
--- NOTE | 2019-10-27 15:14 | DS ---
[facility] Detox Discharge Summary Admission Date: 10/26/19 - History Present History: Alcohol Dependence, Cocaine Dependence, Opioid Dependence - Physical Exam Results Vital Signs: Vital Signs Temperature 98.2 F 10/27/19 14:15 Pulse Rate 81 10/27/19 14:15 Respiratory Rate 18 10/27/19 14:15 Blood Pressure 120/93 10/27/19 14:15 O2 Sat by Pulse Oximetry (%) Pertinent Admission Physical Exam Findings: pt arrived yesterday in withdrawals Vital Signs Temperature 98.2 F 10/27/19 14:15 Pulse Rate 81 10/27/19 14:15 Respiratory Rate 18 10/27/19 14:15 Blood Pressure 120/93 10/27/19 14:15 O2 Sat by Pulse Oximetry (%) pt insisted on leaving a chose to sign out AMA. - Treatment Hospital Course: Rehab Referral Accepted - Medication Discharge Medications: Ambulatory Orders NK [No Known Home Medication] 10/26/19 - Diagnosis (1) Alcohol dependence with uncomplicated withdrawal Status: Acute (2) Cocaine dependence Status: Acute Qualifiers: Substance use status: uncomplicated Qualified Code(s): F14.20 - Cocaine dependence, uncomplicated (3) Nicotine dependence Status: Acute Qualifiers: Nicotine product type: cigarettes Substance use status: uncomplicated Qualified Code(s): F17.210 - Nicotine dependence, cigarettes, uncomplicated (4) Opioid dependence with withdrawal Status: Acute (5) Weight loss Status: Acute (6) COPD (chronic obstructive pulmonary disease) Status: Chronic Qualifiers: COPD type: emphysema Emphysema type: unspecified Qualified Code(s): J43.9 - Emphysema, unspecified (7) Chronic back pain Status: Chronic Qualifiers: Back pain location: low back pain Back pain laterality: bilateral Sciatica presence: without sciatica Qualified Code(s): M54.5 - Low back pain; G89.29 - Other chronic pain (8) HIV (human immunodeficiency virus infection) Status: Chronic Qualifiers: HIV symptom status: unspecified Qualified Code(s): B20 - Human immunodeficiency virus [HIV] disease (9) Hepatitis C virus infection cured after antiviral drug therapy Status: Chronic (10) Hypertension Status: Chronic Qualifiers: Hypertension type: essential hypertension Qualified Code(s): I10 - Essential (primary) hypertension (11) PPD positive, treated Status: Chronic (12) Substance induced mood disorder Status: Suspected - AMA Did Patient Leave Against Medical Advice: Yes
[2019-10-28] MEDS ORDERED: diazePAM 5 MG TABLET PO SCH (06:00)
[2019-10-28] MEDS ORDERED: METHADONE HCL 10 MG TABLET (FOR DETOX USE ONLY) PO ONE (10:00)
[2019-10-29] MEDS ORDERED: METHADONE HCL 5 MG TABLET (FOR DETOX USE ONLY) PO ONE (06:00)
[2019-10-29] MEDS ORDERED: diazePAM 5 MG TABLET PO ONE (06:00)
== END 2019-10-27 15:00 | disposition left against medical advice (07) | DRG 770 ==
LOC: YASAS 11:18 → Y6N 13:13
PROVIDERS: ADMIT Allergy & Immunology; ATTEND Allergy & Immunology
PROC: HZ2ZZZZ Detoxification Services for Substance Abuse Treatment (ICD-10-PCS; principal; 2019-10-26)
DX: F10.230 Alcohol dependence with withdrawal, uncomplicated (principal); F11.23 Opioid dependence with withdrawal; F14.20 Cocaine dependence, uncomplicated; F12.10 Cannabis abuse, uncomplicated; F17.210 Nicotine dependence, cigarettes, uncomplicated; F19.24 Other psychoactive substance dependence with psychoactive substance-induced mood disorder; Z21 Asymptomatic human immunodeficiency virus [HIV] infection status; J43.9 Emphysema, unspecified; I10 Essential (primary) hypertension; D64.9 Anemia, unspecified; M54.5 Low back pain; G89.29 Other chronic pain; R63.4 Abnormal weight loss; R76.11 Nonspecific reaction to tuberculin skin test without active tuberculosis; Z68.1 Body mass index [BMI] 19.9 or less, adult; Z86.19 Personal history of other infectious and parasitic diseases; Z91.018 Allergy to other foods

== ENCOUNTER 2025-02-28 11:48 | Inpatient (IN) | payer OTHER ==
[2025-02-28 12:23] VITALS: BMI 18.3
[2025-02-28] MEDS ORDERED: MAG HYDROX/AL HYDROX/SIMETH 30 ML UNIT-DOSE CUP PO PRN (14:11)
[2025-02-28] MEDS ORDERED: BISMUTH SUBSALICYLATE 524 MG/30 ML PO PRN (14:11)
[2025-02-28] MEDS ORDERED: LOPERAMIDE HCL 2 MG CAPSULE PO PRN (14:11)
[2025-02-28] MEDS ORDERED: hydrOXYzine PAMOATE 25 MG CAPSULE (FP) PO PRN (14:11)
[2025-02-28] MEDS ORDERED: BENZOCAINE/MENTHOL (CHLORASEPTIC ) LOZENGE MM PRN (14:11)
[2025-02-28] MEDS ORDERED: NALOXONE (NARCAN) HCL 4 MG/0.1 ML SPRAY NS PRN (14:11)
[2025-02-28] MEDS ORDERED: IBUPROFEN 400 MG TABLET (FP) PO PRN (14:11)
[2025-02-28] MEDS ORDERED: BENZONATATE 200 MG CAPSULE PO PRN (14:11)
[2025-02-28] MEDS ORDERED: guaiFENesin 600 MG TABLET.ER (FP) PO PRN (14:11)
[2025-02-28] MEDS ORDERED: DICYCLOMINE HCL 10 MG CAPSULE PO PRN (14:11)
[2025-02-28] MEDS ORDERED: MAGNESIUM HYDROX 2400MG/30ML ORAL SUSPENSION 30 ML CUP PO PRN (14:11)
[2025-02-28] MEDS ORDERED: ONDANSETRON *ODT* 4 MG TABLET SL PRN (14:11)
[2025-02-28] MEDS ORDERED: POLYETHYLENE GLYCOL (HEALTHYLAX) 3350 17 GM PACKET PO PRN (14:11)
[2025-02-28] MEDS: NICOTINE POLACRILEX 2 MG LOZENGE BC SCH (18:00)
[2025-02-28] MEDS: cloNIDine HCL 0.1 MG TABLET PO SCH (18:01)
[2025-02-28] MEDS: MELATONIN 5 MG TABLETS PO SCH (22:30)
[2025-02-28] MEDS: THIAMINE 100 MG TABLET PO SCH (22:30)
[2025-02-28] MEDS: ACETAMINOPHEN 325 MG TABLET (FP) PO PRN (22:31)
[2025-03-01] MEDS: IBUPROFEN 600 MG TABLET (FP) PO PRN (07:20)
[2025-03-01] MEDS: PRENATAL VITAMINS W/ FOLIC ACID TABLET (FP) PO SCH (10:27)
[2025-03-01] MEDS: methaDONE HCL 10 MG TABLET PO ONE ×2 (10:28→16:04)
[2025-03-01 13:28] LABS: HEMATOCRIT 32.3 % (34.1-44.9); HEMOGLOBIN 9.7 g/dL (11.2-15.7); MEAN CELL VOLUME 96.7 fl (79.4-94.8); MEAN PLT VOLUME 10.8 fl (9.4-12.3); PLATELET COUNT 237 x10^3/uL (182-369); RDW 13.6 % (12.4-16.4)
[2025-03-01 13:35] LABS: CHLORIDE 105 mmol/L (98-107); SODIUM 137 mmol/L (136-145)
[2025-03-01 13:48] LABS: BILIRUBIN,TOTAL 0.3 mg/dL (0.2-1); SGOT/AST 17 U/L (15-37); SGPT/ALT 12 U/L (13-61); TOT PROT 8.3 g/dl (6.4-8.2)
[2025-03-01 13:50] LABS: ALK PHOS 126 U/L (45-117)
[2025-03-01 13:51] LABS: ANION GAP 3 mmol/L (4-13); CALCIUM 8.5 mg/dL (8.5-10.1); CO2 29 mmol/L (21-32); GLUCOSE,RANDOM 106 mg/dL (74-106)
[2025-03-01 14:15] LABS: CREATININE 1.4 mg/dL (0.55-1.3)
[2025-03-01] MEDS ORDERED: methaDONE 40 MG, methaDONE 20 MG PO ONE (15:30)
[2025-03-01] MEDS ORDERED: BICTEGRAV/EMTRICIT/TENOFOV (BIKTARVY) 50-200-25 MG TABLET PO SCH (15:30)
[2025-03-01] MEDS: methaDONE 40 MG, methaDONE 20 MG PO ONE (17:55)
[2025-03-01] MEDS: BICTEGRAV/EMTRICIT/TENOFOV (BIKTARVY) 50-200-25 MG TABLET PO SCH (18:05)
[2025-03-02] MEDS ORDERED: cloNIDine HCL 0.1 MG TABLET PO PRN
[2025-03-02] MEDS: methaDONE HCL 10 MG TABLET PO ONE ×2 (11:41→18:58)
[2025-03-02] MEDS: methaDONE 40 MG, methaDONE 30 MG PO ONE ×2 (11:44→19:03)
[2025-03-02] MEDS: METHOCARBAMOL 500 MG TABLET PO PRN (21:26)
[2025-03-03] MEDS ORDERED: methaDONE HCL 10 MG TABLET PO ONE (10:00)
[2025-03-03] MEDS: methaDONE HCL 40 MG DISPERSABLE TABLET PO SCH (10:03)
[2025-03-04 13:00] VITALS: PULSE 67
[2025-03-04 17:05] VITALS: BP 119/76; RESP 18; TEMP 97.7
[2025-03-05] MEDS ORDERED: methaDONE HCL 10 MG TABLET PO ONE (10:00)
== END 2025-03-04 18:29 | disposition other institution (70) | DRG 897 ==
LOC: YASAS 11:48 → Y3N 14:49
PROVIDERS: ADMIT Allergy & Immunology; ATTEND Allergy & Immunology
PROC: HZ2ZZZZ Detoxification Services for Substance Abuse Treatment (ICD-10-PCS; principal; 2025-02-28)
DX: F11.20 Opioid dependence, uncomplicated (principal); F14.20 Cocaine dependence, uncomplicated; F13.20 Sedative, hypnotic or anxiolytic dependence, uncomplicated; F16.20 Hallucinogen dependence, uncomplicated; Z68.1 Body mass index [BMI] 19.9 or less, adult; F17.210 Nicotine dependence, cigarettes, uncomplicated; F19.24 Other psychoactive substance dependence with psychoactive substance-induced mood disorder; Z21 Asymptomatic human immunodeficiency virus [HIV] infection status; I10 Essential (primary) hypertension; J43.9 Emphysema, unspecified; M54.50 Low back pain, unspecified; G89.29 Other chronic pain; R79.89 Other specified abnormal findings of blood chemistry; R63.4 Abnormal weight loss; Z86.19 Personal history of other infectious and parasitic diseases
CPT/HCPCS: 36415; 71045-TC-FY; 80053; 80305; 80307; 85027; 86780; 87811; 93005; 93010

== ENCOUNTER 2025-07-24 11:51 | Inpatient (IN) | payer OTHER ==
[2025-07-24 12:04] VITALS: BMI 20.7
[2025-07-24] MEDS ORDERED: guaiFENesin 600 MG TABLET.ER (FP) PO PRN (12:54)
[2025-07-24] MEDS ORDERED: MAG HYDROX/AL HYDROX/SIMETH 30 ML UNIT-DOSE CUP PO PRN (12:54)
[2025-07-24] MEDS ORDERED: LOPERAMIDE HCL 2 MG CAPSULE PO PRN (12:54)
[2025-07-24] MEDS ORDERED: BENZONATATE 200 MG CAPSULE PO PRN (12:54)
[2025-07-24] MEDS ORDERED: BENZOCAINE/MENTHOL (CHLORASEPTIC ) LOZENGE MM PRN (12:54)
[2025-07-24] MEDS ORDERED: MAGNESIUM HYDROX 2400MG/30ML ORAL SUSPENSION 30 ML CUP PO PRN (12:54)
[2025-07-24] MEDS ORDERED: NALOXONE (NARCAN) HCL 4 MG/0.1 ML SPRAY NS PRN (12:54)
[2025-07-24] MEDS ORDERED: POLYETHYLENE GLYCOL (HEALTHYLAX) 3350 17 GM PACKET PO PRN (12:54)
[2025-07-24 18:07] LABS: URINE APPEARANCE CLEAR; URINE BILIRUBIN NEGATIVE (NEGATIVE); URINE COLOR YELLOW; URINE GLUCOSE (UA) NEGATIVE (NEGATIVE); URINE KETONE NEGATIVE (NEGATIVE); URINE LEUK ESTERASE NEGATIVE (NEGATIVE); URINE NITRITE NEGATIVE (NEGATIVE); URINE PROTEIN TRACE (NEGATIVE); URINE UROBILINOGEN 1.0 mg/dL (0.2-1.0)
[2025-07-24] MEDS: MELATONIN 5 MG TABLETS PO SCH (21:03)
[2025-07-24] MEDS: THIAMINE 100 MG TABLET PO SCH (21:03)
[2025-07-25] MEDS: PRENATAL VITAMINS W/ FOLIC ACID TABLET (FP) PO SCH (09:37)
[2025-07-25] MEDS: NICOTINE 14 MG/24 HOURS TOPICAL PATCH TD SCH (09:38)
[2025-07-25 10:00] LABS: MCHC 31.4 g/dl (32.2-35.5); MEAN CELL VOLUME 100.0 fl (79.4-94.8); MEAN PLT VOLUME 11.5 fl (9.4-12.3); RDW 13.5 % (12.4-16.4)
[2025-07-25 10:12] LABS: GLUCOSE,RANDOM 100 mg/dL (74-106); TOT PROT 8.3 g/dl (6.4-8.2)
[2025-07-25 10:13] LABS: CO2 26 mmol/L (21-32)
[2025-07-25 10:15] LABS: ALK PHOS 128 U/L (40-150)
[2025-07-25 10:18] LABS: CREATININE 1.48 mg/dL (0.55-1.3); SGOT/AST 36 U/L (5-34); SGPT/ALT 26 U/L (0-55)
[2025-07-25] MEDS: LISINOPRIL 5 MG TABLET PO SCH (10:36)
[2025-07-25] MEDS: amLODIPine BESYLATE 5 MG TABLET (FP) PO SCH (10:36)
[2025-07-25] MEDS: CYPROHEPTADINE HCL 4 MG TABLET PO SCH (10:37)
[2025-07-25] MEDS: BICTEGRAV/EMTRICIT/TENOFOV (BIKTARVY) 50-200-25 MG TABLET PO SCH (10:37)
[2025-07-25] MEDS: IBUPROFEN 600 MG TABLET (FP) PO PRN (21:45)
[2025-07-25] MEDS: hydrOXYzine PAMOATE 25 MG CAPSULE (FP) PO PRN (21:46)
[2025-07-26] MEDS: ACETAMINOPHEN 325 MG TABLET (FP) PO PRN (09:39)
[2025-07-26] MEDS: NICOTINE POLACRILEX 2 MG GUM BUC PRN (21:15)
[2025-07-29] MEDS: IBUPROFEN 400 MG TABLET (FP) PO PRN (06:16)
[2025-07-30] MEDS: ACETAMINOPHEN 325 MG TABLET (FP) PO PRN (21:14)
[2025-07-30] MEDS: LIDOCAINE PATCH REMOVAL MC SCH (21:15)
[2025-08-01] MEDS: LIDOCAINE 5% TOPICAL PATCH TP PRN (10:09)
[2025-08-04] MEDS: ALBUTEROL SO4 HFA INHALER IH PRN (06:23)
[2025-08-07 10:25] LABS: ABSOLUTE IMMATURE GRANULOCYTES 0.02 x10^3/uL (0.0-0.031); BASOPHILS # 0.03 x10^3/uL (0.01-0.08); EOSINOPHIL % 3.0 % (0.7-5.8); EOSINOPHILS # 0.15 x10^3/uL (0.04-0.36); MCHC 30.6 g/dl (32.2-35.5); MEAN CELL VOLUME 100.3 fl (79.4-94.8); MEAN PLT VOLUME 11.0 fl (9.4-12.3); MONOCYTE # 0.51 x10^3/uL (0.24-0.86); MONOCYTE % 10.3 % (4.7-12.5); RDW 14.6 % (12.4-16.4)
[2025-08-07 10:37] LABS: GLUCOSE,RANDOM 93.0 mg/dL (74-106); TOT PROT 8.5 g/dl (6.4-8.2)
[2025-08-07 10:40] LABS: ALK PHOS 127.0 U/L (40-150)
[2025-08-07 10:42] LABS: SGOT/AST 30.0 U/L (5-34); SGPT/ALT 36.0 U/L (0-55)
[2025-08-07 10:43] LABS: CO2 21.0 mmol/L (21-32); CREATININE 1.2 mg/dL (0.55-1.3)
[2025-08-13 07:14] VITALS: TEMP 97.6
[2025-08-14 06:43] VITALS: RESP 18
[2025-08-14 09:41] VITALS: BP 122/69; PULSE 69
== END 2025-08-14 10:47 | disposition home or self-care (01) | DRG 895 ==
LOC: YASAS 11:51 → Y3NR 14:20 → Y5N 15:41
PROVIDERS: ADMIT Psychiatry & Neurology Pain Medicine; ATTEND Psychiatry & Neurology Pain Medicine
PROC: HZ42ZZZ Group Counseling for Substance Abuse Treatment, Cognitive-Behavioral (ICD-10-PCS; principal; 2025-07-24)
DX: F14.20 Cocaine dependence, uncomplicated (principal); F11.20 Opioid dependence, uncomplicated; F17.210 Nicotine dependence, cigarettes, uncomplicated; F32.A Depression, unspecified; Z21 Asymptomatic human immunodeficiency virus [HIV] infection status; H91.91 Unspecified hearing loss, right ear; I10 Essential (primary) hypertension; J43.9 Emphysema, unspecified; M54.50 Low back pain, unspecified; G89.29 Other chronic pain; R76.11 Nonspecific reaction to tuberculin skin test without active tuberculosis; Z79.899 Other long term (current) drug therapy; Z86.19 Personal history of other infectious and parasitic diseases
CPT/HCPCS: 36415; 80053; 80307; 81003; 85025; 85027; 86780; 93005; 93010